=== PATIENT | female | born 1970 | race Caucasian/White ===

== ENCOUNTER 2023-01-12 16:32 | Emergency (ER) | payer OTHER ==
--- NOTE | 2023-01-12 17:02 | ER ---
Nurse's Notes [facility] Name: Christine Michaels Age: 52 yrs Sex: Female : 1970 Arrival Date: 01/12/2023 Time: 16:32 Bed IW7 Private MD: Diagnosis: Disorder of teeth and supporting structures, unspecified Presentation: 01/12 16:44 Chief complaint: Patient states: she had dental procedure done in [place] approx 1.5 ap3 weeks ago, and each time the stitches come out 2 days later. Patient has had to go back and get the sutures replaced on 01/07/2023 and presents to the ED today because the sutures have come out again. Coronavirus screen: At this time, the client does not indicate any symptoms associated with coronavirus-19. Ebola Screen: No symptoms or risks identified at this time. Initial Sepsis Screen: Does the patient meet any 2 criteria? No. Patient's initial sepsis screen is negative. Does the patient have a suspected source of infection? Yes: Skin breakdown/wound. Risk Assessment: Do you want to hurt yourself or someone else? Patient reports no desire to harm self or others. Onset of symptoms is unknown. 16:44 Method Of Arrival: Ambulatory ap3 16:44 Acuity: MIRACLE 3 ap3 Triage Assessment: 16:48 General: Appears in no apparent distress. Behavior is calm, cooperative, appropriate ap3 for age. Pain: Complains of pain in mouth. EENT: recent oral procedure and dental removal. Neuro: Level of Consciousness is awake, alert, obeys commands, Oriented to person, place, time, situation, Gait is steady, Speech is normal. Cardiovascular: Patient's skin is warm and dry. Respiratory: Airway is patent Respiratory effort is even, unlabored, Respiratory pattern is regular, symmetrical. Historical: - Allergies: 16:47 Bactrim (Hives); ap3 16:47 Cephalexin (Anaphylaxis); ap3 16:47 PENICILLINS; ap3 16:47 Codeine; ap3 - PMHx: 16:47 adhd; Hx of sarcoidosis; insomnia; kidney disease; ap3 - PSHx: 16:47 Abdominal mesh repair; hysterectomy; ap3 - Immunization history:: Client reports receiving the 2nd dose of the Covid vaccine. - Social history:: Smoking status: Patient denies any tobacco usage or history of. Screenin:[facility] ED Fall Risk Assessment (Adult) History of falling in the last 3 months, ap3 including since admission No falls in past 3 months (0 pts). Abuse screen: Denies threats or abuse. Nutritional screening: No deficits noted. Tuberculosis screening: No symptoms or risk factors identified. Assessment: 17:12 Reassessment: No changes from previously documented assessment. Patient and/or family mb9 updated on plan of care and expected duration. Pain level reassessed. Patient is alert, oriented x 3, equal unlabored respirations, skin warm/dry/pink. Vital Signs: 16:44 BP 148 / 95; Pulse 69; Resp 17; Temp 98.9; Pulse Ox 100% ; Weight 70.76 kg; Height 5 ap3 ft. 4 in. ; Pain 6/10; 17:12 BP 138 / 89; Pulse 72; Resp 16; Pulse Ox 99% ; mb9 16:44 Body Mass Index 26.78 (70.76 kg, 162.56 cm) ap3 16:44 Pain Scale: Adult ap3 ED Course: 16:36 Patient arrived in ED. mr 16:40 Danial Davies PA is PHCP. cp 16:40 Flash Lobato DO is Attending Physician. cp 16:47 Triage completed. ap3 16:49 Arm band placed on right wrist. ap3 17:00 Pravin De La Torre DDS is Referral Physician. cp 17:13 No provider procedures requiring assistance completed. Patient did not have IV access mb9 during this emergency room visit. Administered Medications: No medications were administered Medication: 17:13 VIS not applicable for this client. mb9 Outcome: 17:01 Discharge ordered by . cp 17:13 Discharged to home ambulatory. mb9 17:13 Condition: stable 17:13 Discharge instructions given to patient, Instructed on discharge instructions, follow up and referral plans. Demonstrated understanding of instructions, follow-up care, medications, Prescriptions given X 1. 17:13 Patient left the ED. mb9 Signatures: Tariq Sahra alvarado Danial Davies PA PA cp Lillian Yo RN RN ap3 Sahra Bush RN RN mb9
--- NOTE | 2023-01-12 17:02 | EDPHYS ---
Physician Documentation [facility] Name: Christine Michaels Age: 52 yrs Sex: Female : 1970 Arrival Date: 01/12/2023 Time: 16:32 Bed IW7 Private MD: ED Physician Flash Lobato HPI: 01/12 16:53 This 52 yrs old Female presents to ER via Ambulatory with complaints of Mouth Problem. cp 16:53 The patient presents with pain. The problem is located in the anterior lower gums. cp 16:53 Associated signs and symptoms: Pertinent negatives: dysphagia, fever, inability to eat. cp 16:53 Patient presents to ED for wound check of lower anterior gums after having surgical cp procedure performed to have future dental implants placed 1 and 1/2 weeks ago. Patient reports this is second time that sutures have become loose, impacting wound healing. Previous episode she followed up with surgeon who replaced sutures. Patient reports pain to area. Historical: - Allergies: 16:47 Bactrim (Hives); ap3 16:47 Cephalexin (Anaphylaxis); ap3 16:47 PENICILLINS; ap3 16:47 Codeine; ap3 - PMHx: 16:47 adhd; Hx of sarcoidosis; insomnia; kidney disease; ap3 - PSHx: 16:47 Abdominal mesh repair; hysterectomy; ap3 - Immunization history:: Client reports receiving the 2nd dose of the Covid vaccine. - Social history:: Smoking status: Patient denies any tobacco usage or history of. ROS: 16:55 ENT: Positive for Gum pain cp 16:55 Constitutional: Negative for body aches, chills, fever, poor PO intake. cp 16:55 Respiratory: Negative for cough, shortness of breath, wheezing. cp 16:55 Abdomen/GI: Negative for abdominal pain, nausea, vomiting, and diarrhea. 16:55 Neuro: Negative for altered mental status, headache, weakness. 16:55 All other systems are negative. Exam: 16:58 Constitutional: The patient appears in no acute distress, alert, awake, comfortable, cp non-toxic, well developed, well nourished. 16:58 Head/Face: Normocephalic, atraumatic. cp 16:58 Eyes: Periorbital structures: appear normal, Conjunctiva: normal, no exudate, no cp injection, Lids and lashes: appear normal, bilaterally. 16:58 ENT: External ear(s): are unremarkable, Nose: is normal, Mouth: Lips: moist, Oral mucosa: pink and intact, moist, Posterior pharynx: Airway: no evidence of obstruction, patent, Dental exam: gum swelling, that is mild, pain, that is mild, specifically in the anterior lower gumline, moderate dehiscence of surgical site lower anterior gum line, mild erythema, Voice: is normal. 16:58 Neck: ROM/movement: is normal, is supple, without pain, no range of motions limitations, Lymph nodes: no appreciated lymphadenopathy. 16:58 Chest/axilla: Inspection: normal. 16:58 Cardiovascular: Rate: normal. 16:58 Respiratory: the patient does not display signs of respiratory distress, Respirations: normal, no use of accessory muscles, no retractions. Vital Signs: 16:44 BP 148 / 95; Pulse 69; Resp 17; Temp 98.9; Pulse Ox 100% ; Weight 70.76 kg; Height 5 ap3 ft. 4 in. ; Pain 6/10; 17:12 BP 138 / 89; Pulse 72; Resp 16; Pulse Ox 99% ; mb9 16:44 Body Mass Index 26.78 (70.76 kg, 162.56 cm) ap3 16:44 Pain Scale: Adult ap3 MDM: 16:52 Patient medically screened. cp 16:55 Differential diagnosis: dental abscess, cellulitis. cp 17:00 Data reviewed: vital signs, nurses notes, and as a result, I will discharge patient. cp 17:01 Counseling: I had a detailed discussion with the patient and/or guardian regarding: the cp historical points, exam findings, and any diagnostic results supporting the discharge/admit diagnosis, the need for outpatient follow up, maxillary facial surgery, to return to the emergency department if symptoms worsen or persist or if there are any questions or concerns that arise at home. Administered Medications: No medications were administered Disposition: 18:48 Co-signature as Attending Physician, Flash GARCIA was immediately available on-site ms3 in the Emergency Department for consultation in the care of the patient. Disposition Summary: 01/12/23 17:01 Discharge Ordered Location: Home cp Problem: an ongoing problem cp Symptoms: are unchanged cp Condition: Stable cp Diagnosis - Disorder of teeth and supporting structures, unspecified cp Followup: cp - With: Fugler, Pravin, DDS - When: 2 - 3 days - Reason: Recheck today's complaints Discharge Instructions: - Discharge Summary Sheet cp - Dental Extraction, Care After cp Forms: - Medication Reconciliation Form cp - Thank You Letter cp - Antibiotic Education cp - Prescription Opioid Use cp Prescriptions: - Clindamycin HCl 300 mg Oral Capsule - take 1 capsule by ORAL route every 8 hours for 10 days; 30 capsule; Refills: 0, cp Product Selection Permitted Signatures: Danial Davies PA PA cp Prokisch, Amanda RN RN ap3 Flash Lobato DO DO ms3
== END 2023-01-12 17:13 | disposition home or self-care (01) ==
LOC: ER 16:32
DX: K08.9 Disorder of teeth and supporting structures, unspecified (principal)
CPT/HCPCS: 99283

== ENCOUNTER 2025-01-08 07:29 | Day surgery (SDC) | payer OTHER ==
[2025-01-08] MEDS ORDERED: NA CHLORIDE 0.9% 1,000 ML ONE (08:54)
[2025-01-08 09:06] LABS: MPV 7.7 fL (7.6-11.3); Platelets 311 thou/uL (152-406)
[2025-01-08] MEDS ORDERED: MIDAZOLAM HCL 2 MG/2 ML INJ ONE (09:12)
[2025-01-08] MEDS ORDERED: FLUMAZENIL 0.1 MG/ML (5 mL VIAL) IV ONE (09:13)
[2025-01-08] MEDS ORDERED: FENTANYL CITR 100 MCG/2 ML ONE (09:13)
[2025-01-08] MEDS ORDERED: NALOXONE HCL 2 MG/2 ML VIAL ONE (09:14)
[2025-01-08 09:36] LABS: PT Prothrombin Time 10.8 SECONDS (10-13.0); PTT, Activated Partial Thromb 33.8 SECONDS (27.2-37.4); Protime INR 0.94
--- NOTE | 2025-01-08 11:11 | RAD REPORT ---
PROCEDURE: CT-GUIDED BIOPSY Lung Biopsy Perc w/CT Pre-procedure diagnosis: Right upper lobe lesion Post-procedure diagnosis: Same as above. COMPLICATIONS: No immediate complications. IMPRESSION: CT-guided biopsy of right upper lobe lesion PROCEDURE DETAILS: Consent: Informed consent for the procedure including risks, benefits and alternatives was obtained a nd time-out was performed prior to the procedure. Sedation: Moderate sedation (conscious sedation) Administered by: Nurse, or other independent traine d observer, with level of consciousness and vital signs continuously monitored. Total sedation administered: 2 mL Versed and 75 mcg Fentanyl. Total intra-service sedation time: 30 minutes. Biopsy: Local anesthesia was administered. Under CT guidance, the biopsy needle was advanced to the t arget and biopsy was performed. [id number]. Number of specimens: 3 Additional sampling description: None. Preliminary assessment of sample adequacy: Not applicable. The biopsy needle was removed and a sterile dressing was applied. Post-biopsy imaging findings: No immediate complications seen. Additional Details: Additional description of procedure: None Equipment details: 18 gauge core sample device Estimated blood loss: Less than 10 mL.
--- NOTE | 2025-01-08 11:57 | RAD REPORT ---
EXAMINATION: Chest Single View VIEWS: As above CLINICAL INDICATION: Female, 54 years old. S/P LUNG BIOPSY COMPARISON: 12/10/2022 IMPRESSION: No appreciable pneumothorax following right-sided lung biopsy. Postbiopsy changes in the right upper lobe. Innumerable calcified pulmonary nodules, chronic.
[2025-01-08 13:00] VITALS: O2SAT 99
[2025-01-08 13:21] VITALS: BMI 25.7
[2025-01-08 13:22] VITALS: BP 108/60; TEMP 97.9
--- NOTE | 2025-01-08 18:53 | RAD REPORT ---
EXAMINATION: Chest Single View VIEWS: One view CLINICAL INDICATION: Female, 54 years old. S/P LUNG BIOPSY COMPARISON: One hour prior IMPRESSION: No appreciable pneumothorax following right-sided lung biopsy. No significant change from prior.
== END 2025-01-08 13:12 | disposition home or self-care (01) ==
LOC: DS 07:29
PROVIDERS: ATTEND Internal Medicine Sleep Medicine
PROC: 0BBC3ZX Excision of Right Upper Lung Lobe, Percutaneous Approach, Diagnostic (ICD-10-PCS; principal; 2025-01-08)
DX: C34.91 Malignant neoplasm of unspecified part of right bronchus or lung (principal)
CPT/HCPCS: 32408; 36415; 85049; 85610; 88305; 85730; 77012; 71045 ×2; J2250; J3010; J7030; J2310